=== PATIENT | male | born 1950 | race Caucasian/White ===

== ENCOUNTER 2018-06-28 12:03 | Day surgery (SDC) | payer MEDICARE, OTHER ==
--- NOTE | 2018-06-28 07:13 | History and Physical - [facility] ---
CHIEF COMPLAINT/HISTORY OF CHIEF COMPLAINT: This patient with a history of an intractable lumbar radiculopathy had a spinal cord stimulator trial conducted on 05/09/18 with 75-85% pain control. Due to the failure of other therapies and the success of the trial, he presents today for implantation of permanent system. PAST MEDICAL HISTORY: Peripheral neuropathy, hypertension, thrombophlebitis, degenerative arthritis, fibromyalgia, depression and difficulty sleeping. PAST SURGICAL HISTORY: Multiple knee replacements. EMPLOYMENT STATUS: Disability. MEDICATIONS ON ADMISSION: List to be provided. ALLERGIES: LYRICA. FAMILY/PSYCHOSOCIAL HISTORY: Social history - Noncontributory. Family history - Cancer. SYSTEMS REVIEW: The patient is appropriate in no acute distress. . PHYSICAL EXAMINATION: Height is 5'11", no weight identified. Vital signs - Blood pressure 140/88. Current examination shows diffuse tenderness throughout the lumbar spine. Range of motion does produce pain into both legs across the front and back surface. Motor and sensory field function is somewhat difficult to evaluate. There appears to be weakness and sensory loss in both lower extremities, in particular below the knees. Ambulation - No assistive device utilized. Neurologic - Cranial nerves are intact. IMPRESSION: LUMBAR RADICULOPATHY, ICD-10 CODE M54.16 AND M54.17. PLAN: Due to the failure of therapies and the success of stimulator trial, the patient presents today for implantation of permanent system. The potential risks, side effects, and complications have all been carefully reviewed and discussed. The procedure will be considered outpatient although an overnight stay will be evaluated. JOB NUMBER: [id number] MTDD
[~2018-06-28 12:03] MED LIST: ACETAMINOPHEN 1,000 MG/100 ML BTL IV ONE; FAMOTIDINE 20MG TABLET PO ONE; MECLIZINE 25 MG TABLET PO ONE; METOCLOPRAMIDE 10 MG TABLET PO ONE; VANCOMYCIN HCL 1,000 MG in DEXTROSE 5 % IN WATER 250 ML IVPB ONE
[2018-06-28] MEDS ORDERED: BUPIVACAINE 0.5% W/EPI MPF 30 ML VIAL IVP ONE (12:04)
[2018-06-28] MEDS ORDERED: LIDOCAINE 1% W/EPI 1:200,000 MPF 30ML SQ ONE (12:04)
[2018-06-28] MEDS ORDERED: 0.9 % SODIUM CHLORIDE 10 ML VIAL IVP ONE (12:04)
[2018-06-28] MEDS ORDERED: CEFAZOLIN 1G VIAL IM ONE (12:04)
--- NOTE | 2018-06-29 17:48 | Operative Note ---
DATE OF SURGERY: 06/28/2018. PREOPERATIVE DIAGNOSIS: LUMBAR RADICULOPATHY, ICD-10 CODE M54.16 AND M54.17. POSTOPERATIVE DIAGNOSIS: LUMBAR RADICULOPATHY, ICD-10 CODE M54.16 AND M54.17. OPERATION: 1. Fluoroscopically guided epidural access left T12-L1. Placement of spinal cord stimulator lead 1, a [employer] Infineon 16 with 16 electrodes, positioned left T6. 2. Fluoroscopically guided epidural access right T11-12. Placement of spinal cord stimulator lead 2, a [employer] Infineon 16 with 16 electrodes, positioned right T6. 3. Complex programming of lead 1 over 20 minutes followed by complex programming of lead 2 over 20 minutes. 4. Incision, subcutaneous dissection, and anchoring of lead 1 and lead 2 to the supraspinous fascia using a Your[employer] locking anchor. 5. Incision, subcutaneous dissection, and creation of subcutaneous pouch at left flank for placement of generator identified as Your[employer] programmable rechargeable Wavewriter generator. 6. Tunneling between pouches. Placement of external portion of lead 1 and lead 2 into generator pouch, each lead interfaced to the generator. 7. Placement of generator pouch with placement of leads into each individual incisional pouch. 8. Closure of all incisions using Stratafix suture with #2-0 for the fascia and #3-0 for the skin. Dermabond closure. 9. Complex recovery room programming of the internal generator for home use, two stimulators, for 20 minutes. SURGEON: Jared Kline D.O. INDICATIONS: This patient presents with a history of intractable lumbar radiculopathy. Due to the failure of therapy, a spinal cord stimulator trial was conducted with 75 to 85 percent pain control. Due to the failure of therapy and the success of the trial, the patient presents today for implantation of a permanent system. DESCRIPTION OF PROCEDURE: Intravenous lines, vital sign monitoring, and no sedation by the patient's request. Prepped and draped with sterile technique. Under imaging, the epidural interspaces at T12-L1 left and 11-12 right were infiltrated. Dilley were placed using curved access Epimed needles with loss of resistance. At 12-1 spinal cord stimulator lead 1, a [employer] Infineon 16 with 16 electrodes, was positioned left at T6. With the access right at 11-12, spinal cord stimulator lead 2, a [employer] Infineon 16 with 16 electrodes, was positioned right at T6. Complex programming of lead 1 over 20 minutes was followed by complex programming of lead 2 over 20 minutes. This resulted in complete patterns of stimulation across the back and into the legs. The patient indicated we were in all of the areas of the pain. He was then given the options to implant, continue to program, or remove. He opted to implant. All questions were repeated with the same response. The skin above an below both needles was then infiltrated with local. Incision was made and subcutaneous dissection was conducted to the supraspinous fascia. The needles were removed and each lead was anchored to the supraspinous fascia with a Your[employer] locking anchor and nonabsorbable suture. At the left flank, the site picked by the patient for the generator, the skin was infiltrated. An incision was made and subcutaneous dissection was conducted to form a pouch of suitable size and depth for the generator. The leads were then tunneled into the generator pouch, and each lead was interfaced to the generator. Antibiotic irrigation and Bovie for hemostasis. With the generator in the pouch and leads in the pouch, all three incisions were closed with Stratafix suture with #2-0 for the fascia and #3-0 for the skin. Dermabond closure system was used to approximate the edges of both wounds. He was transported to the recovery room stable, showing no side effects from the procedure or the sedation. When prepared for discharge, discharge instructions were given. DISCHARGE INSTRUCTIONS: 1. The sites are to remain clean and dry. Although the Dermabond will allow showering, he should wait for 24 hours to shower. 2. Standard medications to be resumed including Levaquin the antibiotic 500 mg once a day for 14 days. 3. All other instructions were provided and numbers to contact with problems were given. 4. The office will contact the patient in the next two to three days to set up an appointment in seven to ten days to evaluate the sites. Until then, activities should stay low. 5. He was prepared for discharge. JOB NUMBER: [id number] cc: Jimena Flores
--- NOTE | 2018-07-01 09:15 | RADIOLOGY REPORT ---
EXAM: THORACOLUMBAR SPINE HISTORY: STATUS POST SPINAL CORD STIMULATOR IMPLANT. TECHNIQUE: A single frontal view of the thoracolumbar spine was obtained. Comparison: Thoracic spine radiographs 05/18/18. FINDINGS: Apparent interval adjustment or replacement of thoracic spinal cord stimulator; proximal tip of stimulator leads are in the projection of the T5-T6 interspace, previously seen at T7-T8. Stimulator generator partially seen overlying the left vernon-abdomen. Multiple chronic right sided rib fractures are noted. IMPRESSION: APPARENT INTERVAL ADJUSTMENT OF THORACIC SPINAL STIMULATOR LEADS, ABOVE. JOB NUMBER: [id number] [facility]
== END 2018-06-28 16:25 | disposition home or self-care (01) ==
LOC: SUR 12:03
PROVIDERS: ATTEND Pain Medicine Interventional Pain Medicine
DX: M54.16 Radiculopathy, lumbar region (principal); M54.17 Radiculopathy, lumbosacral region; I10 Essential (primary) hypertension; N40.0 Benign prostatic hyperplasia without lower urinary tract symptoms; G62.9 Polyneuropathy, unspecified
CPT/HCPCS: 63655; 63685; 95972; 72020; J3370; C1820; C1883; J0690; J7060

== ENCOUNTER 2018-12-25 08:17 | Day surgery (SDC) | payer MEDICARE, OTHER ==
--- NOTE | 2018-12-25 06:21 | History and Physical - Ferro ---
CHIEF COMPLAINT/HISTORY OF CHIEF COMPLAINT: This patient presents with a history of an intractable lumbar radiculopathy. Due to the failure of all therapy and the success of a stimulator trial, a permanent system implanted on . Despite by initial optimal results as well as a successful trial, this patient began having issues with respect to programming higher or lower areas of his pain. Multiple attempts at reprogramming were unsuccessful. He was given the option to replace the generator to the new generation which would ideally improve stimulation patterns, he rather opted to remove the system. PAST MEDICAL HISTORY: Peripheral neuropathy, hypertension, thrombophlebitis, degenerative arthritis, fibromyalgia, depression, and difficulty sleeping. PAST SURGICAL HISTORY: Multiple knee replacements. MEDICATIONS ON ADMISSION: List to be provided. ALLERGIES: LYRICA. FAMILY/PSYCHOSOCIAL HISTORY: Social history - Noncontributory. Family history - Cancer. SYSTEMS REVIEW: The patient is appropriate in no acute distress. PHYSICAL EXAMINATION: Height is 5'11", no weight identified. Vital signs - Not available. HEENT: Within normal limits. LUNGS: Clear. HEART: Rapid and regular. ABDOMEN: Nontender. MUSCULOSKELETAL: Examination of the musculoskeletal system shows the incision midline for the leads to be intact and a pouch at the left flank identified for the generator shows the incision intact. His primary pain pattern was bilateral lower extremity. Motor and sensory field evaluation is consistent with the earlier evaluations. NEUROLOGIC: Cranial nerves are intact. IMPRESSION: 1. LUMBAR RADICULOPATHY, ICD-10 CODE M54.16 AND M54.17. 2. SPINAL CORD STIMULATOR AND INTERNAL GENERATOR, NONFUNCTIONAL. PLAN: The patient is here on an outpatient basis for removal of the two lead stimulator and generator. The procedure will be considered outpatient although an overnight stay will be evaluated. JOB NUMBER: [id number] [facility]
[~2018-12-25 08:17] MED LIST changes: +CEFAZOLIN 2 Gram 2 GM/50 ML BAG IVPB ONE
[2018-12-25] MEDS ORDERED: 0.9 % SODIUM CHLORIDE 10 ML VIAL IVP ONE (08:18)
[2018-12-25] MEDS ORDERED: LIDOCAINE 1% W/EPI 1:200,000 MPF 30ML SQ ONE (08:18)
[2018-12-25] MEDS ORDERED: MUPIROCIN OINT 22 GM TUBE TOP ONE (08:18)
[2018-12-25] MEDS ORDERED: BUPIVACAINE 0.5% W/EPI MPF 30 ML VIAL IVP ONE (08:18)
[2018-12-25] MEDS ORDERED: CEFAZOLIN 1G VIAL IM ONE (08:18)
--- NOTE | 2018-12-27 14:03 | Operative Note ---
DATE: 12/25/2018. PRIMARY CARE PHYSICIAN: David Rodríguez D.O. PREOPERATIVE DIAGNOSIS: 1. INTRACTABLE LUMBAR RADICULOPATHY, ICD-10 CODE M54.16 AND M54.17. 2. SPINAL CORD STIMULATOR INTERNAL GENERATOR NONFUNCTIONAL. POSTOPERATIVE DIAGNOSIS: 1. INTRACTABLE LUMBAR RADICULOPATHY, ICD-10 CODE M54.16 AND M54.17. 2. SPINAL CORD STIMULATOR INTERNAL GENERATOR NONFUNCTIONAL. PROCEDURES: 1. Fluoroscopically guided incision, subcutaneous dissection, and removal of two-lead spinal cord stimulator. 2. Incision, subcutaneous dissection, and removal of internal pulse generator with the interface connections. SURGEON: Jared Kline D.O. ANESTHESIA: Straight local with no sedation by patient request. DESCRIPTION OF PROCEDURE: The patient was positioned prone. Sterile prep and sterile technique under continuous monitoring with imaging and local. The incision for the two leads, one left and one right, midline infiltrated. An incision was made and subcutaneous dissection was conducted to the anchor. The anchor and sutures were removed and then each of the leads was removed intact with all electrodes accounted for. At the left flank, the site for the generator, the skin was infiltrated and an incision was made. Subcutaneous dissection was conducted to the generator. The generator was then removed intact along with the connections to the leads. Antibiotic irrigation and Bovie for hemostasis at all sites. Imaging was used to confirm that all components were removed. The three incisions were then closed with Stratafix suture; #2-0 for the fascia and #3-0 for the skin. Dermabond closure. He was transported to the recovery room stable with no side effects from the procedure or the sedation. When awake and alert he was discharged home at his request. DISCHARGE INSTRUCTIONS: 1. The sites are to remain clean and dry. The Dermabond will allow showering, but he should not sit in water; no tubs. 2. Standard medications to be resumed including the antibiotic Levaquin 500 mg once a day for 14 days. 3. The office will contact the patient in 24 to 48 hours to set up an appointment within the next seven to ten days to evaluate the sites. Until then activities should stay controlled; limit bend, lift, push, and pull. The antibiotics have been called in by the hospital, and everything is in place. He already has analgesics at home from previous prescription. JOB NUMBER: [id number] cc: DavidJimena Stanton
== END 2018-12-25 10:50 | disposition home or self-care (01) ==
LOC: SUR 08:17
PROVIDERS: ATTEND Pain Medicine Interventional Pain Medicine
DX: M54.17 Radiculopathy, lumbosacral region (principal)
CPT/HCPCS: 63661; 63688; J0690; J7060